=== PATIENT | female | born 1965 | race Caucasian/White ===

== ENCOUNTER 2018-03-15 10:59 | Emergency (ER) | payer OTHER ==
[~2018-03-15] VITALS: Ht 160 cm; Wt 67.1 kg
[2018-03-15] MEDS ORDERED: ATOR20 PO (11:48)
[2018-03-15] MEDS ORDERED: QUET100 PO (11:48)
[2018-03-15] MEDS ORDERED: MIDO5 (11:49)
== END 2018-03-15 13:36 | disposition home or self-care (01) ==
LOC: ER 10:59
DX: M25.561 Pain in right knee (principal); W01.0XXA Fall on same level from slipping, tripping and stumbling without subsequent striking against object, initial encounter; Y99.0 Civilian activity done for income or pay; Z79.899 Other long term (current) drug therapy
CPT/HCPCS: 29505; 73562-RT; 99283-25

== ENCOUNTER 2018-06-25 09:29 | Emergency (ER) | payer OTHER ==
[~2018-06-25] VITALS: Ht 160 cm; Wt 69.0 kg
[~2018-06-25 09:29] MED LIST: ATOR20 PO; MIDO5; QUET100 PO
[2018-06-25] MEDS ORDERED: KETO10 PO (10:10)
[2018-06-25] MEDS ORDERED: Cyclobenzaprine5 MG PO (10:11)
[2018-08-21] MEDS ORDERED: QUET100 (12:43)
== END 2018-06-25 10:19 | disposition home or self-care (01) ==
LOC: ER 09:29
DX: S39.012A Strain of muscle, fascia and tendon of lower back, initial encounter (principal); X58.XXXA Exposure to other specified factors, initial encounter; Z79.899 Other long term (current) drug therapy
CPT/HCPCS: 96372; 99283-25; J1885

== ENCOUNTER 2018-08-02 13:39 | Day surgery (SDC) | payer BC ==
[~2018-08-02] VITALS: Ht 160 cm; Wt 72.3 kg
[~2018-08-02 13:39] MED LIST changes: +Cyclobenzaprine5 MG PO; +KETO10 PO
[2018-08-02] MEDS ORDERED: ESTR2 TD (14:46)
[2018-08-02] MEDS ORDERED: ESTRADIOL1 EAC2 TD (14:48)
[2018-08-21] MEDS ORDERED: QUET100 (12:43)
== END 2018-08-02 16:30 | disposition home or self-care (01) ==
LOC: ORSCSDS 13:39
PROVIDERS: Surgery
PROC: 0DBP8ZX Excision of Rectum, Via Natural or Artificial Opening Endoscopic, Diagnostic (ICD-10-PCS; principal; 2018-08-02 15:00)
DX: Z12.11 Encounter for screening for malignant neoplasm of colon (principal); K62.1 Rectal polyp; K57.30 Diverticulosis of large intestine without perforation or abscess without bleeding; K21.9 Gastro-esophageal reflux disease without esophagitis; E78.5 Hyperlipidemia, unspecified; Z79.899 Other long term (current) drug therapy
CPT/HCPCS: 88305; J7120

== ENCOUNTER 2020-03-07 08:38 | Day surgery (SDC) | payer OTHER ==
[~2020-03-07 08:38] MED LIST changes: +ESTR2 TD; +ESTRADIOL1 EAC2 TD; +QUET100
== END 2020-03-07 22:37 | disposition home or self-care (01) ==
LOC: MOI MAM 08:38
DX: D05.11 Intraductal carcinoma in situ of right breast (principal); Z17.0 Estrogen receptor positive status [ER+]
CPT/HCPCS: 19081

== ENCOUNTER 2020-03-28 08:34 | Day surgery (SDC) | payer OTHER ==
[~2020-03-28 08:34] MED LIST changes: +ASPI81CH PO; +METF500 PO; -QUET100; +VITAMIN D310 MC4 PO
== END 2020-03-28 22:37 | disposition home or self-care (01) ==
LOC: MOI MAM 08:34
DX: D05.11 Intraductal carcinoma in situ of right breast (principal)
CPT/HCPCS: 19281

== ENCOUNTER 2020-04-03 08:11 | Day surgery (SDC) | payer OTHER ==
[~2020-04-03] VITALS: Ht 160 cm; Wt 81.2 kg
--- NOTE | 2020-04-03 10:23 | NUR ---
Ambulatory in Day Surgery History, Chart, Medications and Allergies reviewed before start of procedure. Pre-Op teaching done. Pt verbalizes understanding.
--- NOTE | 2020-04-03 11:30 | NUR ---
Discharge instructions reviewed with patient. Patient verbalizes understanding. Copy given to patient to take home. Dressing to procedure site clean, dry, intact with no visible drainage, swelling, erythema or bruising noted. Patient States Post-Procedure ride home has been arranged. Discharged via wheelchair to private car for ride home. PT HERE TO ASSIST PT WITH DRESSING PT DENIES NEED FOR PAIN MEDS
--- NOTE | 2020-04-03 14:23 | NUR ---
NAUSEA WITH SLIGHT VOMITING NOTED. REGLAN 10MG IV GIVEN PER ORDERS. CONTINUE TO MONITOR.
--- NOTE | 2020-04-03 14:29 | NUR ---
GOOD RELIEF WITH REGLAN FOR NAUSEA.
--- NOTE | 2020-04-03 14:33 | NUR ---
ICE PACK PLACED TO SURGICAL SITE. PT FEELING BETTER.
--- NOTE | 2020-04-03 15:03 | NUR ---
Patient up to Ambulate independently. Gait steady. Discharge instructions reviewed with patient. Patient verbalizes understanding. Copy given to patient to take home. Dressing to procedure site clean, dry, intact with no visible drainage, swelling, erythema or bruising noted. Breast binder in place. Patient States Post-Procedure ride home has been arranged. Discharged via wheelchair to private car for ride home.
== END 2020-04-03 14:57 | disposition home or self-care (01) ==
LOC: NM 08:11 → ORSCMMR 08:11 → NM 09:30
PROVIDERS: Surgery
PROC: 0HBT0ZZ Excision of Right Breast, Open Approach (ICD-10-PCS; principal; 2020-04-03 10:30)
DX: D05.11 Intraductal carcinoma in situ of right breast (principal); Z17.0 Estrogen receptor positive status [ER+]; K76.0 Fatty (change of) liver, not elsewhere classified; Z79.899 Other long term (current) drug therapy; Z79.82 Long term (current) use of aspirin
CPT/HCPCS: 38792; A9270-GY; A9520; J0690; J1100; J1885; J2250; J2370; J2405; J2704; J2765; J3010; J7120; Q9968

== ENCOUNTER → 2021-06-18 | Outpatient (CLI) | payer BC ==
[2021-06-18 09:50] LABS: BASOPHILS ABSOLUTE AUTO 0.01 K/mm3 (0.00-0.23); BASOPHILS PERCENT AUTO 0 % (0-2); EOSINOPHILS ABSOLUTE AUTO 0.12 K/mm3 (0.00-0.68); EOSINOPHILS PERCENT AUTO 2 % (0-6); Hematocrit 42.3 % (33.0-51.0); Hemoglobin 13.5 g/dL (11.5-16.0); IMMATURE GRAN ABSOLUTE AUTO 0.01 K/mm3 (0.00-0.10); IMMATURE GRAN PERCENT AUTO 0 % (0-1); LYMPHOCYTES ABSOLUTE AUTO 2.19 K/mm3 (0.84-5.20); LYMPHOCYTES PERCENT AUTO 43 % (21-46); MONOCYTES ABSOLUTE AUTO 0.43 K/mm3 (0.16-1.47); MONOCYTES PERCENT AUTO 9 % (4-13); Mean Corpuscular HGB 28.6 pg (26.0-34.0); Mean Corpuscular HGB Conc 31.9 g/dL (31.5-36.5); Mean Corpuscular Volume 90 fL (80-100); Mean Platelet Volume 10.2 fL (9.1-12.4); NEUTROPHILS ABSOLUTE AUTO 2.31 K/mm3 (1.96-9.15); NEUTROPHILS PERCENT AUTO 46 % (41-73); Platelet Count 256 K/mm3 (150-400); RDW Coefficient Variation 15.2 % (11.7-14.2); RDW Standard Deviation 50.2 fL (35.1-46.3); Red Blood Cell Count 4.72 M/mm3 (3.80-5.20); White Blood Cell Count 5.07 K/mm3 (4.00-11.30)
[2021-06-18 09:58] LABS: C-REACTIVE PROTEIN, EXT RANGE <0.290 mg/dL (0.000-0.300); CHOL/HDL RATIO 3.5; Cholesterol 230 mg/dL (50-200); HDL Cholesterol 65 mg/dL (>39); Low Density Lipoprotein Chol 133 mg/dL (0-110); Triglycerides 160 mg/dL (30-160); Very Low Density Lipoprot Chol 32 mg/dL (6-32)
[2021-06-18 11:22] LABS: Alanine Aminotransfer (ALT/SGP 69 U/L (12-78); Albumin, Blood 3.5 g/dL (3.4-5.0); Alk Phos 149 U/L (50-136); Anion Gap 4 mmol/L (6-16); Aspartate Aminotrans (AST/SGOT 36 U/L (12-37); Bilirubin, Total 0.4 mg/dL (0.1-1.0); Blood Urea Nitrogen 14 mg/dL (8-24); Bun/Creatinine Ratio 15.3 (12.0-20.0); CO2, Blood 33 mmol/L (21-32); Chloride, Blood 106 mmol/L (98-108); Creatinine, Blood 0.92 mg/dL (0.40-1.00); Globulin, Blood 3.5 g/dL (2.2-4.0); Glomerular Filtration Rate >60 (60-); Glucose, Blood 110 mg/dL (70-99); Sodium, Blood 143 mmol/L (136-145)
== END | disposition home or self-care (01) ==
LOC: LAB 07:37 → LAB SHORT 07:37
PROVIDERS: Family Medicine
DX: Z13.6 Encounter for screening for cardiovascular disorders (principal); E78.5 Hyperlipidemia, unspecified; G25.0 Essential tremor
CPT/HCPCS: 36415; 80053; 80061; 82607; 82746; 83036; 84443; 85025; 85651; 86140; 86592

== ENCOUNTER → 2022-10-22 | Outpatient (CLI) | payer BC | END | disposition home or self-care (01) | LOC: LAB SHORT 07:52 | DX: Z13.1 Encounter for screening for diabetes mellitus (principal); Z13.21 Encounter for screening for nutritional disorder; Z13.220 Encounter for screening for lipoid disorders; Z13.228 Encounter for screening for other metabolic disorders; Z13.29 Encounter for screening for other suspected endocrine disorder; D05.11 Intraductal carcinoma in situ of right breast; L65.8 Other specified nonscarring hair loss; N90.4 Leukoplakia of vulva; N95.1 Menopausal and female climacteric states; R53.83 Other fatigue; R63.5 Abnormal weight gain | CPT/HCPCS: 85651 ==